=== PATIENT | male | born 1950 | race Caucasian/White ===

== ENCOUNTER 2020-12-09 13:35 | Emergency (ER) | payer MEDICARE, BC ==
[2020-12-09 14:51] LABS: ALT (SGPT) 53 U/L (8-55); AST (SGOT) 49 U/L (5-34); Albumin 4.4 g/dL (3.4-4.8); Alkaline Phosphatase 65 U/L (40-110); Anion Gap 15 mmol/L (10-20); BUN (Urea Nitrogen) 10 mg/dL (8.4-25.7); Bilirubin, Total 0.6 mg/dL (0.2-1.2); Calc. Creatinine Clearance 0 mL/min (70-130); Calcium 9.2 mg/dL (7.8-10.44); Carbon Dioxide 27 mmol/L (23-31); Chloride 98 mmol/L (98-107); Globulin 2.8 g/dL (2.4-3.5); Glucose 91 mg/dL (80-115); Protein, Total 7.2 g/dL (5.8-8.1); Sodium 136 mmol/L (136-145)
[2020-12-09 14:56] LABS: #Monocytes 0.7 10x3/uL (0.0-1.1); #Neutrophils 2.8 10x3/uL (1.5-8.4); %Basophils 0.2 % (0.0-2.0); %Eosinophils 0.2 % (0.0-6.0); %Lymphocytes 22.1 % (18.0-47.0); %Monocytes 15.4 % (0.0-10.0); %Neutrophils 61.4 % (40.0-75.0); Hemoglobin 15.9 g/dL (13.5-17.5); Mean Corpuscular HGB CONC 33.3 g/dL (32.0-36.0); Mean Corpuscular Hemoglobin 31.5 pg (27.0-33.0); Mean Corpuscular Volume 94.6 fl (81.2-95.1); Mean Platelet Volume 10.7 fl (7.4-10.4); Platelet Count 129 10x3/uL (150-450); RBC Distribution Width 13.1 % (11.5-14.5); Red Blood Cell (RBC) Count 5.04 10x6/uL (4.32-5.72); White Blood Cell (WBC) Count 4.6 10x3/uL (3.5-10.5)
== END 2020-12-09 16:35 | disposition home or self-care (01) ==
LOC: CSHERS 13:35
DX: U07.1 COVID-19 (principal); I25.10 Atherosclerotic heart disease of native coronary artery without angina pectoris; K21.9 Gastro-esophageal reflux disease without esophagitis; I73.9 Peripheral vascular disease, unspecified; I10 Essential (primary) hypertension; G40.909 Epilepsy, unspecified, not intractable, without status epilepticus; Z79.899 Other long term (current) drug therapy
CPT/HCPCS: 71045; 80053; 83880; 84484; 85025; 93005

== ENCOUNTER 2020-12-16 10:02 | Emergency (ER) | payer MEDICARE, BC | END 2020-12-16 11:45 | disposition home or self-care (01) | LOC: CSHERS 10:02 | DX: U07.1 COVID-19 (principal); J12.82 Pneumonia due to coronavirus disease 2019; I25.10 Atherosclerotic heart disease of native coronary artery without angina pectoris; E78.5 Hyperlipidemia, unspecified; I73.9 Peripheral vascular disease, unspecified; K21.9 Gastro-esophageal reflux disease without esophagitis; I10 Essential (primary) hypertension; G40.909 Epilepsy, unspecified, not intractable, without status epilepticus; Z79.899 Other long term (current) drug therapy | CPT/HCPCS: 71045 ==

== ENCOUNTER 2023-04-19 09:42 | Emergency (ER) | payer MEDICARE, BC ==
[2023-04-19] MEDS ORDERED: Acetaminophen 500 MG TAB ONE (12:47)
== END 2023-04-19 13:36 | disposition home or self-care (01) ==
LOC: CSHERS 09:42
DX: S09.90XA Unspecified injury of head, initial encounter (principal); S43.401A Unspecified sprain of right shoulder joint, initial encounter; K21.9 Gastro-esophageal reflux disease without esophagitis; I10 Essential (primary) hypertension; Z79.02 Long term (current) use of antithrombotics/antiplatelets; Z79.899 Other long term (current) drug therapy; E78.5 Hyperlipidemia, unspecified; W18.30XA Fall on same level, unspecified, initial encounter
CPT/HCPCS: 70450

== ENCOUNTER 2023-07-02 09:37 | Emergency (ER) | payer MEDICARE, BC ==
[2023-07-02 11:10] LABS: #Eosinphils 0.1 10x3/uL (0.0-0.5); #Monocytes 0.7 10x3/uL (0.0-1.1); #Neutrophils 4.3 10x3/uL (1.5-8.4); %Basophils 0.6 % (0.0-2.0); %Eosinophils 1.2 % (0.0-6.0); %Lymphocytes 20.4 % (18.0-47.0); %Monocytes 11.4 % (0.0-10.0); %Neutrophils 65.8 % (40.0-75.0); Hematocrit 42.8 % (38.8-50.0); Hemoglobin 14.9 g/dL (13.5-17.5); Mean Corpuscular HGB CONC 34.8 g/dL (32.0-36.0); Mean Corpuscular Hemoglobin 33.7 pg (27.0-33.0); Mean Corpuscular Volume 96.8 fl (81.2-95.1); Mean Platelet Volume 9.9 fl (7.4-10.4); Platelet Count 179 10x3/uL (150-450); RBC Distribution Width 12.6 % (11.5-14.5); Red Blood Cell (RBC) Count 4.42 10x6/uL (4.32-5.72); White Blood Cell (WBC) Count 6.5 10x3/uL (3.5-10.5)
[2023-07-02 11:17] LABS: ALT (SGPT) 38 U/L (8-55); AST (SGOT) 38 U/L (5-34); Alkaline Phosphatase 55 U/L (40-110); Anion Gap 16 mmol/L (10-20); BUN (Urea Nitrogen) 12 mg/dL (8.4-25.7); Bilirubin, Total 0.6 mg/dL (0.2-1.2); Calc. Creatinine Clearance 0 mL/min (70-130); Calcium 9.2 mg/dL (7.8-10.44); Carbon Dioxide 25 mmol/L (23-31); Chloride 100 mmol/L (98-107); Estimated GFR 97; Globulin 2.4 g/dL (2.4-3.5); Glucose 97 mg/dL (83-110); Lipase 31 U/L (8-78); Potassium 4.2 mmol/L (3.5-5.1); Protein, Total 6.4 g/dL (5.8-8.1); Sodium 137 mmol/L (136-145)
[2023-07-02 11:20] LABS: Troponin I Less than 0.010 ng/mL (< 0.028)
[2023-07-02 13:29] LABS: Troponin I Less than 0.010 ng/mL (< 0.028)
== END 2023-07-02 14:02 | disposition home or self-care (01) ==
LOC: CSHERS 09:37
DX: R07.89 Other chest pain (principal); I25.10 Atherosclerotic heart disease of native coronary artery without angina pectoris; K21.9 Gastro-esophageal reflux disease without esophagitis; I10 Essential (primary) hypertension; Z79.899 Other long term (current) drug therapy
CPT/HCPCS: 36415; 71045; 80053; 83690; 83880; 84484; 85025; 93005; 94760

== ENCOUNTER 2024-05-31 12:34 | Outpatient (CLI) | payer MEDICARE | END 2024-05-31 12:35 | disposition home or self-care (01) | LOC: CSHWCC 12:34 | PROVIDERS: ATTEND Nurse Practitioner Family | DX: L89.893 Pressure ulcer of other site, stage 3 (principal); I73.9 Peripheral vascular disease, unspecified | CPT/HCPCS: 97597; G0463; 99213 ==

== ENCOUNTER 2024-06-04 13:30 | Outpatient (CLI) | payer MEDICARE | END 2024-06-04 13:31 | disposition home or self-care (01) | LOC: CSHWCC 13:30 | PROVIDERS: ATTEND Nurse Practitioner Family | DX: L89.893 Pressure ulcer of other site, stage 3 (principal); I73.9 Peripheral vascular disease, unspecified | CPT/HCPCS: 11042; 87070; 87205 ==

== ENCOUNTER 2024-06-08 09:45 | Outpatient (CLI) | payer MEDICARE | END 2024-06-08 09:46 | disposition home or self-care (01) | LOC: CSHWCC 09:45 | PROVIDERS: ATTEND Nurse Practitioner Family | DX: I73.9 Peripheral vascular disease, unspecified (principal); L89.893 Pressure ulcer of other site, stage 3 | CPT/HCPCS: 99213; G0463 ==

== ENCOUNTER 2024-06-15 15:31 | Outpatient (CLI) | payer MEDICARE | END 2024-06-15 15:32 | disposition home or self-care (01) | LOC: CSHWCC 15:31 | PROVIDERS: ATTEND Nurse Practitioner Family | DX: L89.893 Pressure ulcer of other site, stage 3 (principal); I73.9 Peripheral vascular disease, unspecified | CPT/HCPCS: 97597; G0463; 99213 ==

== ENCOUNTER 2024-06-21 14:46 | Outpatient (CLI) | payer MEDICARE | END 2024-06-21 14:47 | disposition home or self-care (01) | LOC: CSHWCC 14:46 | PROVIDERS: ATTEND Nurse Practitioner Family | DX: L89.893 Pressure ulcer of other site, stage 3 (principal); L97.512 Non-pressure chronic ulcer of other part of right foot with fat layer exposed; I73.9 Peripheral vascular disease, unspecified | CPT/HCPCS: 11042; G0463; 99213 ==

== ENCOUNTER 2024-06-28 14:38 | Outpatient (CLI) | payer MEDICARE | END 2024-06-28 14:39 | disposition home or self-care (01) | LOC: CSHWCC 14:38 | PROVIDERS: ATTEND Nurse Practitioner Family | DX: L89.893 Pressure ulcer of other site, stage 3 (principal); I73.9 Peripheral vascular disease, unspecified; L97.512 Non-pressure chronic ulcer of other part of right foot with fat layer exposed | CPT/HCPCS: 11042; 97597 ==

== ENCOUNTER 2024-07-06 14:45 | Outpatient (CLI) | payer MEDICARE | END 2024-07-06 14:46 | disposition home or self-care (01) | LOC: CSHWCC 14:45 | PROVIDERS: ATTEND Nurse Practitioner Family | DX: L89.893 Pressure ulcer of other site, stage 3 (principal); I73.9 Peripheral vascular disease, unspecified; L97.512 Non-pressure chronic ulcer of other part of right foot with fat layer exposed | CPT/HCPCS: 97597 ==

== ENCOUNTER 2024-07-12 15:28 | Outpatient (CLI) | payer MEDICARE | END 2024-07-12 15:29 | disposition home or self-care (01) | LOC: CSHWCC 15:28 | PROVIDERS: ATTEND Nurse Practitioner Family | DX: L97.512 Non-pressure chronic ulcer of other part of right foot with fat layer exposed (principal); I73.9 Peripheral vascular disease, unspecified | CPT/HCPCS: 11042; G0463; 99212 ==

== ENCOUNTER 2024-07-20 14:36 | Outpatient (CLI) | payer MEDICARE | END 2024-07-20 14:37 | disposition home or self-care (01) | LOC: CSHWCC 14:36 | PROVIDERS: ATTEND Nurse Practitioner Family | DX: L97.512 Non-pressure chronic ulcer of other part of right foot with fat layer exposed (principal); I73.9 Peripheral vascular disease, unspecified | CPT/HCPCS: 11042 ==

== ENCOUNTER 2024-07-27 12:14 | Outpatient (CLI) | payer MEDICARE | END 2024-07-27 12:15 | disposition home or self-care (01) | LOC: CSHWCC 12:14 | PROVIDERS: ATTEND Nurse Practitioner Family | DX: L97.512 Non-pressure chronic ulcer of other part of right foot with fat layer exposed (principal); I73.9 Peripheral vascular disease, unspecified | CPT/HCPCS: 11042; 87070; 87077; 87186; 87205; G0463; 99212 ==

== ENCOUNTER 2024-08-03 13:55 | Outpatient (CLI) | payer MEDICARE | END 2024-08-03 13:56 | disposition home or self-care (01) | LOC: CSHWCC 13:55 | PROVIDERS: ATTEND Family Medicine | DX: L89.893 Pressure ulcer of other site, stage 3 (principal); I73.9 Peripheral vascular disease, unspecified | CPT/HCPCS: 97597; G0463; 99212 ==

== ENCOUNTER 2024-08-10 15:25 | Outpatient (CLI) | payer MEDICARE | END 2024-08-10 15:26 | disposition home or self-care (01) | LOC: CSHWCC 15:25 | PROVIDERS: ATTEND Nurse Practitioner Family | DX: L89.893 Pressure ulcer of other site, stage 3 (principal); I73.9 Peripheral vascular disease, unspecified | CPT/HCPCS: 11042 ==

== ENCOUNTER 2024-08-17 13:58 | Outpatient (CLI) | payer MEDICARE | END 2024-08-17 13:59 | disposition home or self-care (01) | LOC: CSHWCC 13:58 | PROVIDERS: ATTEND Nurse Practitioner Family | DX: L89.893 Pressure ulcer of other site, stage 3 (principal); I73.9 Peripheral vascular disease, unspecified | CPT/HCPCS: 11042 ==

== ENCOUNTER 2024-08-24 13:56 | Outpatient (CLI) | payer MEDICARE | END 2024-08-24 13:57 | disposition home or self-care (01) | LOC: CSHWCC 13:56 | PROVIDERS: ATTEND Nurse Practitioner Family | DX: L89.893 Pressure ulcer of other site, stage 3 (principal); I73.9 Peripheral vascular disease, unspecified | CPT/HCPCS: 11042 ==

== ENCOUNTER 2024-09-05 14:05 | Outpatient (CLI) | payer MEDICARE | END 2024-09-05 14:06 | disposition home or self-care (01) | LOC: CSHWCC 14:05 | PROVIDERS: ATTEND Nurse Practitioner Family | DX: L89.893 Pressure ulcer of other site, stage 3 (principal); I73.9 Peripheral vascular disease, unspecified ==

== ENCOUNTER 2024-10-04 14:08 | Outpatient (CLI) | payer MEDICARE | END 2024-10-04 14:09 | disposition home or self-care (01) | LOC: CSHWCC 14:08 | PROVIDERS: ATTEND Nurse Practitioner Family | DX: L89.893 Pressure ulcer of other site, stage 3 (principal); I73.9 Peripheral vascular disease, unspecified | CPT/HCPCS: 11042 ==

== ENCOUNTER 2024-12-20 14:39 | Outpatient (CLI) | payer MEDICARE | END 2024-12-20 14:40 | disposition home or self-care (01) | LOC: CSHWCC 14:39 | PROVIDERS: ATTEND Nurse Practitioner Family | DX: L89.893 Pressure ulcer of other site, stage 3 (principal); L97.212 Non-pressure chronic ulcer of right calf with fat layer exposed; I73.9 Peripheral vascular disease, unspecified | CPT/HCPCS: 87070; 87205 ==

== ENCOUNTER 2025-03-20 13:57 | Outpatient (CLI) | payer MEDICARE | END 2025-03-20 13:58 | disposition home or self-care (01) | LOC: CSHWCC 13:57 | PROVIDERS: ATTEND Nurse Practitioner Family | DX: I70.232 Atherosclerosis of native arteries of right leg with ulceration of calf (principal); L97.212 Non-pressure chronic ulcer of right calf with fat layer exposed | CPT/HCPCS: 15271; Q4186 ==

== ENCOUNTER 2025-03-27 15:16 | Outpatient (CLI) | payer MEDICARE | END 2025-03-27 15:17 | disposition home or self-care (01) | LOC: CSHWCC 15:16 | PROVIDERS: ATTEND Nurse Practitioner Family | DX: I70.232 Atherosclerosis of native arteries of right leg with ulceration of calf (principal); L97.212 Non-pressure chronic ulcer of right calf with fat layer exposed | CPT/HCPCS: 11042 ==

== ENCOUNTER 2025-04-03 14:08 | Outpatient (CLI) | payer MEDICARE | END 2025-04-03 14:09 | disposition home or self-care (01) | LOC: CSHWCC 14:08 | PROVIDERS: ATTEND Nurse Practitioner Family | DX: I70.232 Atherosclerosis of native arteries of right leg with ulceration of calf (principal); L97.212 Non-pressure chronic ulcer of right calf with fat layer exposed | CPT/HCPCS: 11042 ==

== ENCOUNTER 2025-04-10 15:38 | Outpatient (CLI) | payer MEDICARE | END 2025-04-10 15:39 | disposition home or self-care (01) | LOC: CSHWCC 15:38 | PROVIDERS: ATTEND Nurse Practitioner Family | DX: I70.212 Atherosclerosis of native arteries of extremities with intermittent claudication, left leg (principal); L97.212 Non-pressure chronic ulcer of right calf with fat layer exposed | CPT/HCPCS: 11042 ==

== ENCOUNTER 2025-04-17 14:54 | Outpatient (CLI) | payer MEDICARE | END 2025-04-17 14:55 | disposition home or self-care (01) | LOC: CSHWCC 14:54 | PROVIDERS: ATTEND Nurse Practitioner Family | DX: I70.211 Atherosclerosis of native arteries of extremities with intermittent claudication, right leg (principal); L97.212 Non-pressure chronic ulcer of right calf with fat layer exposed | CPT/HCPCS: 11042 ==

== ENCOUNTER 2025-04-24 13:50 | Outpatient (CLI) | payer MEDICARE | END 2025-04-24 13:51 | disposition home or self-care (01) | LOC: CSHWCC 13:50 | PROVIDERS: ATTEND Nurse Practitioner Family | DX: I70.232 Atherosclerosis of native arteries of right leg with ulceration of calf (principal); L97.212 Non-pressure chronic ulcer of right calf with fat layer exposed | CPT/HCPCS: 11042 ==

== ENCOUNTER 2025-05-01 13:25 | Outpatient (CLI) | payer MEDICARE | END 2025-05-01 13:26 | disposition home or self-care (01) | LOC: CSHWCC 13:25 | PROVIDERS: ATTEND Nurse Practitioner Family | DX: I70.232 Atherosclerosis of native arteries of right leg with ulceration of calf (principal); L97.212 Non-pressure chronic ulcer of right calf with fat layer exposed | CPT/HCPCS: 11042 ==

== ENCOUNTER 2025-05-08 13:34 | Outpatient (CLI) | payer MEDICARE | END 2025-05-08 13:35 | disposition home or self-care (01) | LOC: CSHWCC 13:34 | PROVIDERS: ATTEND Nurse Practitioner Family | DX: I70.232 Atherosclerosis of native arteries of right leg with ulceration of calf (principal); L97.212 Non-pressure chronic ulcer of right calf with fat layer exposed | CPT/HCPCS: 11042 ==

== ENCOUNTER 2025-05-15 13:49 | Outpatient (CLI) | payer MEDICARE | END 2025-05-15 13:50 | disposition home or self-care (01) | LOC: CSHWCC 13:49 | PROVIDERS: ATTEND Nurse Practitioner Family | DX: I70.232 Atherosclerosis of native arteries of right leg with ulceration of calf (principal); L97.212 Non-pressure chronic ulcer of right calf with fat layer exposed | CPT/HCPCS: 11042; G0463; 99213 ==

== ENCOUNTER 2025-05-22 13:43 | Outpatient (CLI) | payer MEDICARE | END 2025-05-22 13:44 | disposition home or self-care (01) | LOC: CSHWCC 13:43 | PROVIDERS: ATTEND Nurse Practitioner Family | DX: L89.502 Pressure ulcer of unspecified ankle, stage 2 (principal); I70.232 Atherosclerosis of native arteries of right leg with ulceration of calf; L97.212 Non-pressure chronic ulcer of right calf with fat layer exposed | CPT/HCPCS: 97597 ==

== ENCOUNTER 2025-06-13 14:05 | Outpatient (CLI) | payer MEDICARE | END 2025-06-13 14:06 | disposition home or self-care (01) | LOC: CSHWCC 14:05 | PROVIDERS: ATTEND Nurse Practitioner Family | DX: I70.232 Atherosclerosis of native arteries of right leg with ulceration of calf (principal); L97.212 Non-pressure chronic ulcer of right calf with fat layer exposed | CPT/HCPCS: 97597 ==

== ENCOUNTER 2025-06-26 13:49 | Outpatient (CLI) | payer MEDICARE | END 2025-06-26 13:50 | disposition home or self-care (01) | LOC: CSHWCC 13:49 | PROVIDERS: ATTEND Nurse Practitioner Family | DX: I70.232 Atherosclerosis of native arteries of right leg with ulceration of calf (principal); L97.212 Non-pressure chronic ulcer of right calf with fat layer exposed; I70.212 Atherosclerosis of native arteries of extremities with intermittent claudication, left leg | CPT/HCPCS: 99213; G0463 ==

== ENCOUNTER 2025-07-10 13:50 | Outpatient (CLI) | payer MEDICARE | END 2025-07-10 13:51 | disposition home or self-care (01) | LOC: CSHWCC 13:50 | PROVIDERS: ATTEND Nurse Practitioner Family | DX: Z09 Encounter for follow-up examination after completed treatment for conditions other than malignant neoplasm (principal); I73.9 Peripheral vascular disease, unspecified; Z87.2 Personal history of diseases of the skin and subcutaneous tissue | CPT/HCPCS: 99212; G0463 ==

== ENCOUNTER 2025-08-02 13:53 | Outpatient (CLI) | payer MEDICARE | END 2025-08-02 13:54 | disposition home or self-care (01) | LOC: CSHWCC 13:53 | PROVIDERS: ATTEND Family Medicine | DX: L89.893 Pressure ulcer of other site, stage 3 (principal); I70.232 Atherosclerosis of native arteries of right leg with ulceration of calf | CPT/HCPCS: 11042 ==

== ENCOUNTER 2025-08-08 13:13 | Outpatient (CLI) | payer MEDICARE | END 2025-08-08 13:14 | disposition home or self-care (01) | LOC: CSHWCC 13:13 | PROVIDERS: ATTEND Nurse Practitioner Family | DX: L89.893 Pressure ulcer of other site, stage 3 (principal); I70.232 Atherosclerosis of native arteries of right leg with ulceration of calf | CPT/HCPCS: 97597; 99213; G0463 ==

== ENCOUNTER 2025-08-15 13:08 | Outpatient (CLI) | payer MEDICARE | END 2025-08-15 13:09 | disposition home or self-care (01) | LOC: CSHWCC 13:08 | PROVIDERS: ATTEND Nurse Practitioner Family | DX: L89.893 Pressure ulcer of other site, stage 3 (principal); I70.232 Atherosclerosis of native arteries of right leg with ulceration of calf ==

== ENCOUNTER 2025-08-28 14:59 | Outpatient (CLI) | payer MEDICARE | END 2025-08-28 15:00 | disposition home or self-care (01) | LOC: CSHWCC 14:59 | PROVIDERS: ATTEND Nurse Practitioner Family | DX: L89.893 Pressure ulcer of other site, stage 3 (principal); I70.232 Atherosclerosis of native arteries of right leg with ulceration of calf; L97.219 Non-pressure chronic ulcer of right calf with unspecified severity | CPT/HCPCS: 97597; G0463; 99211 ==